=== PATIENT | female | born 1990 | race Caucasian/White ===

== ENCOUNTER 2019-02-26 19:54 | Observation (INO) | payer OTHER ==
[~2019-02-26] VITALS: Ht 172.7 cm; Wt 89.1 kg
[2019-02-26 21:27] LABS: BASO % 0.4 % (0.0-2.0); EOS # 0.1 (0.0-0.7); EOS % 0.5 % (0-4.0); GRAN # 8.2 (1.4-6.5); GRAN % 77.4 % (42.2-75.2); HEMATOCRIT 39.5 % (37.0-47.0); HEMOGLOBIN 13.1 g/dl (12.5-16.0); LYMPH # 1.7 (1.2-3.4); LYMPH % 15.8 % (20.0-51.0); MEAN CELL VOLUME 91 fl (80.0-100.0); MEAN CORPUSCULAR HEMOGLOBIN 30 pg (27.0-31.0); MEAN CORPUSCULAR HGB CONC 33 g/dl (33.0-37.0); MEAN PLATELET VOLUME 9.6 fl (7.4-10.4); MONO # 0.6 (0.1-0.6); MONO % 5.5 % (1.7-9.3); PLATELET COUNT 195 K/mm3 (130-400); RED BLOOD COUNT 4.36 M/mm3 (4.10-5.30); REDCELL DISTRIBUTION WIDTH-CV 11.8 % (11.5-14.5)
[2019-02-26 21:44] LABS: ALBUMIN 4.3 gm/dL (3.5-5.0); BILIRUBIN,TOTAL 0.4 mg/dL (0.0-1.0); CALCIUM 8.8 mg/dL (8.4-10.2); CREATININE, serum 0.62 (0.52-1.25); POTASSIUM 3.6 mmol/L (3.4-5.0); TOTAL PROTEIN 7.4 gm/dL (6.4-8.2)
--- NOTE | 2019-02-27 00:01 | NUR ---
0001 PT TO LR3 PER CART BY "[facility]" ER NURSE. SPOUSE HERE,SUPPORTIVE.ASSIST TO STAND AND TRANSFER TO BED BY 2 RNS- STATES "SOMETHING IS COMING OUT"ASSITED TO BED, FOUND TO HAVE PASSED DARK CLOT, APPROX 30CC WITH TISSUE,VS ASSESSED, ANNABELLE CARE. NO ACTIVE BLEEDING OR CRAMPING NOTED. DENIES NAUSEA.INT IN LEFT AC. 0030 AMBULATES WITH ASSIST TO [id number] VOID. TOLERATES WELL BEING UP.IV LR PER PUMP STARTED. ADMISSION ASSESSMENT DONE. WARM BLANKETS FOR COMFORT, INSTRUCTIED NPO IN CASE OF D/C. VEBALIZED UNDERSTANDING. 0045 PLAN OF CARE DISCUSSED -QUESTIONS ADDRESSED. LIGHTS OFF FOR REST AND SLEEP.DENIES NEEDS AT THIS TIME.
[2019-02-27 00:15] VITALS: BP 127/80; PULSE 97; TEMP 98.3
[2019-02-27 01:18] VITALS: BP 127/80; PULSE 97; TEMP 98.3
[2019-02-27] MEDS ORDERED: PRENATAL TABLET PO (01:21)
--- NOTE | 2019-02-27 03:30 | NUR ---
CALLS TO ASK NURSE TO CHECK PAD FOR BLEEDING. SMALL AMT BRIGHT RED NO CLOTS ON TOWEL BETWEEN LEGS. ASSIST UP TO BR- TOLERATES WELL . 200CC VOID,BRIGHT RED SMALL AMT WHEN WIPING AFTER VOID. 0345 DILAUDID 0.25 MG SLOW IV GIVEN. WARM BLANKETS FOR COMFORT TO BACK. REMAINS NPO.
[2019-02-27 03:48] VITALS: BP 110/75; PULSE 88; TEMP 98.2
--- NOTE | 2019-02-27 07:55 | NUR ---
Dr. Drummond here, visits with patient. Ibuprofen 600 mg given as ordered. Dr. Drummond does speculum exam per sterile technique. Small amount of tissue removed and sent to lab. Orders for nothing by mouth until ultra sound.
[2019-02-27 07:58] LABS: BASO % 0.4 % (0.0-2.0); EOS # 0.1 (0.0-0.7); EOS % 1.1 % (0-4.0); GRAN # 4.1 (1.4-6.5); GRAN % 58.2 % (42.2-75.2); HEMOGLOBIN 11.6 g/dl (12.5-16.0); LYMPH # 2.2 (1.2-3.4); LYMPH % 31.5 % (20.0-51.0); MEAN CELL VOLUME 90 fl (80.0-100.0); MEAN CORPUSCULAR HEMOGLOBIN 30 pg (27.0-31.0); MEAN CORPUSCULAR HGB CONC 33 g/dl (33.0-37.0); MEAN PLATELET VOLUME 9.8 fl (7.4-10.4); MONO # 0.6 (0.1-0.6); MONO % 8.5 % (1.7-9.3); PLATELET COUNT 196 K/mm3 (130-400); RED BLOOD COUNT 3.87 M/mm3 (4.10-5.30); REDCELL DISTRIBUTION WIDTH-CV 11.9 % (11.5-14.5)
[2019-02-27 08:00] VITALS: BP 99/59; PULSE 75; TEMP 97.7
[2019-02-27 08:00] LABS: HEMATOCRIT 34.8 % (37.0-47.0)
--- NOTE | 2019-02-27 09:00 | NUR ---
Rests in bed, alert, spouse at bedside. Denies any needs at this time.
--- NOTE | 2019-02-27 10:00 | NUR ---
Rests in bed, alert. Ultra sound tech in room for ultra sound.
--- NOTE | 2019-02-27 11:00 | NUR ---
Rests in bed, alert. Let patient know as soon as we hear something from radiology we would let her know.
[2019-02-27 11:50] VITALS: BP 102/66; PULSE 81; TEMP 98.6
--- NOTE | 2019-02-27 12:00 | NUR ---
Rests in bed, alert. Eating toast. Let patient and family know about results of ultra sound. 1215 Discharge instructions given, verbalizes understanding. Dismiss to home in wheel chair, alert, stable.
== END 2019-02-27 12:15 | disposition home or self-care (01) ==
LOC: COL.ER 19:54 → LDR 22:56 → OB 22:56 → LDR 02-27 08:23
PROVIDERS: Family Medicine; ADMIT Obstetrics & Gynecology
DX: O02.1 Missed abortion (principal); D64.9 Anemia, unspecified
CPT/HCPCS: G0378; J1170; J2405; J7030; J7120

== ENCOUNTER 2019-03-02 11:58 | Emergency (ER) | payer OTHER ==
[~2019-03-02] VITALS: Ht 172.7 cm; Wt 89.1 kg
[~2019-03-02 11:58] MED LIST: PRENATAL TABLET PO
[2019-03-02 12:03] VITALS: TEMP 98.3
[2019-03-02 12:20] LABS: COLLECTION METHOD CLEAN CATCH
[2019-03-02] MEDS ORDERED: IBU800 M1 PO (12:22)
[2019-03-02] MEDS ORDERED: NORCO 325 MG-51 TAB PO (12:22)
[2019-03-02 12:40] LABS: BASO % 0.5 % (0.0-2.0); EOS # 0.2 (0.0-0.7); GRAN # 4.7 (1.4-6.5); GRAN % 64.5 % (42.2-75.2); HEMATOCRIT 38.6 % (37.0-47.0); HEMOGLOBIN 13.1 g/dl (12.5-16.0); LYMPH % 26.6 % (20.0-51.0); MEAN CELL VOLUME 89 fl (80.0-100.0); MEAN CORPUSCULAR HEMOGLOBIN 30 pg (27.0-31.0); MEAN CORPUSCULAR HGB CONC 34 g/dl (33.0-37.0); MEAN PLATELET VOLUME 9.4 fl (7.4-10.4); MONO # 0.5 (0.1-0.6); MONO % 6.1 % (1.7-9.3); PLATELET COUNT 223 K/mm3 (130-400); RED BLOOD COUNT 4.34 M/mm3 (4.10-5.30); REDCELL DISTRIBUTION WIDTH-CV 11.7 % (11.5-14.5)
[2019-03-02 12:40] LABS: PH 5 (5-8); SQUAMOUS EPITHELIAL 0-2 /hpf; URINE APPEARANCE Hazy; URINE BACTERIA None Seen /hpf; URINE BILIRUBIN Negative (NEGATIVE); URINE BLOOD 3+ (NEGATIVE); URINE COLOR Yellow; URINE GLUCOSE Negative (NEGATIVE); URINE KETONE Negative (NEGATIVE); URINE LEUKOCYTE ESTERASE Trace (NEGATIVE); URINE NITRATE Negative (NEGATIVE); URINE PROTEIN(semi-quant) Negative (NEGATIVE); URINE RBC >50 /hpf; URINE UROBILINOGEN Negative (NEGATIVE)
[2019-03-02 13:03] LABS: ALBUMIN 4.4 gm/dL (3.5-5.0); BILIRUBIN,TOTAL 0.5 mg/dL (0.0-1.0); CALCIUM 9.5 mg/dL (8.4-10.2); CREATININE, serum 0.66 (0.52-1.25); POTASSIUM 4.2 mmol/L (3.4-5.0); TOTAL PROTEIN 7.5 gm/dL (6.4-8.2)
[2019-03-02] MEDS ORDERED: PHENERGAN 25 TA25 MG PO (15:02)
[2019-03-02 15:58] VITALS: BP 113/74; PULSE 73
== END 2019-03-02 16:00 | disposition home or self-care (01) ==
LOC: COL.ER 11:58
PROVIDERS: Emergency Medicine
DX: O03.9 Complete or unspecified spontaneous abortion without complication (principal)
CPT/HCPCS: J1170; J1885; J2405; J2550; J3010; J7030